=== PATIENT | male | born 1970 | race Caucasian/White ===

== ENCOUNTER → 2016-12-31 | Outpatient (CLI) | payer BC ==
[~2016-12-31] MED LIST: ATORVASTATIN CA20 MG PO; HYDROCHLOROTH12.5 M1 PO; OMNICEF 300 MG300 MG PO; WARFARIN SOD5 MG PO
--- NOTE | 2016-12-31 10:55 | RADIOLOGY REPORT PS360 ---
LUMBAR SPINE 5 VIEWS COMPARISON: CT scan abdomen pelvis 10/07/2016 HISTORY: Low back pain, right-sided sciatica TECHNIQUE: AP lateral and oblique views and spot view lumbosacral junction FINDINGS: There is normal curvature and alignment. All lumbar vertebrae appear intact and disc spaces are well-maintained throughout there is no pars defect. The SI joints are normal. IMPRESSION: Negative lumbar spine
== END ==
LOC: RAD 10:20
DX: M54.41 Lumbago with sciatica, right side (principal)

== ENCOUNTER → 2017-02-23 | Outpatient (CLI) | payer BC ==
--- NOTE | 2017-02-24 07:26 | RADIOLOGY REPORT PS360 ---
MRI-L-SPINE W/O, MRI-3D RENDERING/MYELOGRAM HISTORY: Low back pain, mid back pain, bilateral hip and groin pain LUMBAGO W/ SCIATICA ORDERING PHYSICIAN: Flavio Hardwick MD PATIENT AGE: 47 years COMPARISON: 12/31/2016 TECHNIQUE: Standard multiplanar multiecho sequences are performed without contrast. 3-D MIP and myelographic images are also rendered and reviewed FINDINGS: There is normal alignment. The spinal cord ends at the L1-L2 level. There is mild degenerative disc disease at T11-T12 T12-L1, L1-L2, L2-L3 and L3-L4 have an unremarkable appearance at the disc spaces. There is a small T2 hyperintense involving the L3 vertebral body superiorly nonspecific and could be due to a small hemangioma. L4-L5: Mild concentric bulging disc with mild facet and ligamentum flavum hypertrophy. L5-S1: Disc desiccation with bulging discs somewhat eccentric toward the left. There is focal increased T2 signal involving the left paracentral aspect of the disc consistent with an annular tear. The disc abuts the left S1 nerve root at this region with mild bilateral foraminal narrowing. There is mild facet hypertrophic changes well. No extruded herniated disc or canal stenosis. Small left renal cyst measuring 15 mm and an additional 5 mm left renal cyst. IMPRESSION: 1. Bulging disc somewhat eccentric toward the left at L5-S1 with focal increased T2 signal involving the left paracentral aspect of the disc consistent with an annular tear. The disc abuts the left S1 nerve root at this region with mild bilateral foraminal narrowing. There is mild facet hypertrophic changes well 2. No extruded herniated disc or canal stenosis. 3. Small T2 hyperintensity L3 vertebral body superiorly nonspecific and may be due to small hemangioma. Stability MIBI follow-up 4. Minimal bulging disc at L4-L5
== END ==
LOC: RAD 15:00
DX: M54.41 Lumbago with sciatica, right side (principal)